=== PATIENT | female | born 1945 | race Caucasian/White ===

== ENCOUNTER 2020-02-03 08:32 | Outpatient (CLI) | payer MEDICARE, SELFPAY ==
[2020-02-03 08:59] LABS: Hematocrit 40.1 % (37.0-47.0); Mean Corpuscular HGB Conc 34.9 g/dl (32-36); Mean Corpuscular Hemoglobin 35.9 pg (26-34); Mean Corpuscular Volume 102.8 fl (80-100); Mean Platelet Volume 8.7 fl (7.4-10.4); Platelet Count Result 281 k/mm3 (150-375); Red Cell Distribution Width 14.6 % (11.5-14.5); White Blood Count 4.5 K/mm3 (4.5-10.0)
[2020-02-03 09:13] LABS: Potassium 3.6 mmol/L (3.4-5.0)
[2020-02-03 09:14] LABS: Alanine Aminotransferase 24 U/L (4-35); Albumin Level 3.7 g/dL (3.5-5.1); Alkaline Phosphatase 58 U/L (38-126); Anion Gap 9 mmol/L (8-16); Aspartate Amino Transferase 47 U/L (14-36); Bilirubin,Total 0.5 mg/dL (0.2-1.3); Blood Urea Nitrogen 14 mg/dL (7-17); Calcium 8.7 mg/dL (8.4-10.2); Carbon Dioxide 27 mmol/L (22-30); Chloride 103 mmol/L (98-107); Cholesterol 159 mg/dL (0-200); Estimated Glomerular Filt Rate > 60; Glucose 100 mg/dL (65-105); HDL Direct 82 mg/dL; Sodium 139 mmol/L (137-145); Triglycerides 184 mg/dL (<150)
[2020-02-03 09:24] LABS: LDL Cholesterol Direct 55 mg/dL
== END 2020-02-03 08:33 | disposition home or self-care (01) ==
LOC: ANHLAB 08:36
PROVIDERS: PCP Family Medicine; Visit Provider Physician Assistant Medical
DX: I10 Essential (primary) hypertension (principal); E78.2 Mixed hyperlipidemia; Z13.220 Encounter for screening for lipoid disorders
CPT/HCPCS: 36415; 80053; 80061; 84443; 85027

== ENCOUNTER → 2020-05-02 15:52 | Outpatient (CLI) | payer MEDICARE, SELFPAY ==
--- NOTE | ~2020-05-02 | MM_ITS ---
EXAMINATION: MM screening renetta BI w kong HISTORY: Screening mammogram TECHNIQUE: Craniocaudal and mediolateral oblique 3-D tomosynthesis images were obtained and synthetic 2-D images were generated. CAD analysis was submitted and interpreted. COMPARISON: 02/11/2019, 01/23/2018, 01/21/2017, 01/2016 bilateral digital screening mammogram examina tions BREAST PARENCHYMAL COMPOSITION: There are scattered areas of fibroglandular density. FINDINGS: Occasional benign calcifications. There is no evidence of suspicious mass, calcification, o r architectural distortion to suggest malignancy in either breast. There has been no suspicious inter katerina change. IMPRESSION: 1. No mammographic evidence of malignancy. 2. Recommend routine screening mammography in one year. BI-RADS Category 1: Negative Reviewed, dictated and finalized at location A. 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
== END ==
PROVIDERS: PCP Family Medicine; Visit Provider Obstetrics & Gynecology
DX: Z12.31 Encounter for screening mammogram for malignant neoplasm of breast (principal)
CPT/HCPCS: 77063; 77067

== ENCOUNTER → 2021-05-04 09:59 | Outpatient (CLI) | payer MEDICARE, SELFPAY ==
--- NOTE | ~2021-05-04 | MM_ITS ---
EXAMINATION: MM screening renetta BI w kong HISTORY: Screening mammogram TECHNIQUE: Craniocaudal and mediolateral oblique 3-D tomosynthesis images were obtained and synthetic 2-D images were generated. CAD analysis was submitted and interpreted. COMPARISON: 05/02/2020, 02/11/2019, 01/23/2018 bilateral screening mammogram examinations BREAST PARENCHYMAL COMPOSITION: There are scattered areas of fibroglandular density. FINDINGS: There is no evidence of suspicious mass, calcification, or architectural distortion to sugg est malignancy in either breast. There has been no suspicious interval change. IMPRESSION: 1. No mammographic evidence of malignancy. 2. Recommend routine screening mammography in one year. BI-RADS Category 1: Negative Reviewed, dictated and finalized at location A. GRADER
== END ==
PROVIDERS: Visit Provider Obstetrics & Gynecology
DX: Z12.31 Encounter for screening mammogram for malignant neoplasm of breast (principal)
CPT/HCPCS: 77063; 77067

== ENCOUNTER → 2022-06-28 11:22 | Outpatient (CLI) | payer MEDICARE, SELFPAY ==
--- NOTE | ~2022-06-28 | MM_ITS ---
EXAMINATION: MM screening [facility] BI w kong HISTORY: Screening mammogram TECHNIQUE: Craniocaudal and mediolateral oblique 3-D tomosynthesis images were obtained and synthetic 2-D images were generated. CAD analysis was submitted and interpreted. COMPARISON: 05/04/2021, 05/02/2020, 02/11/2019 BREAST PARENCHYMAL COMPOSITION: There are scattered areas of fibroglandular density. FINDINGS: No suspicious mass, calcification, or architectural distortion are identified in either corey ast to suggest malignancy. There has been no suspicious interval change. IMPRESSION: 1. No mammographic evidence of malignancy. 2. Recommend routine screening mammography in one year. BI-RADS Category 1: Negative Reviewed, dictated and finalized at location A. 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
== END ==
PROVIDERS: PCP Obstetrics & Gynecology; Visit Provider Obstetrics & Gynecology
DX: Z12.31 Encounter for screening mammogram for malignant neoplasm of breast (principal)
CPT/HCPCS: 77063; 77067

== ENCOUNTER 2023-02-13 10:56 | Emergency (ER) | payer MEDICARE, SELFPAY ==
--- NOTE | ~2023-02-13 | XR_ITS ---
XR ankle LT min 3V, XR foot LT min 3V 02/13/2023 11:35 Indication: Left ankle and foot pain after fall Procedure: 4 views left ankle and 4 views left foot Comparison: No prior studies for comparison. Findings: Is a transverse nondisplaced fracture proximal aspect of the fifth metatarsal. Ankle mortis e intact. There is hallux valgus. 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 Ost eopenia. There is an avulsion fracture involving the lateral margin of the cuboid with mild associate d soft tissue swelling. There is an avulsion fracture of the navicular. Impression: 1: Transverse nondisplaced fracture proximal aspect of the fifth metatarsal. 2: Avulsion fractures of the cuboid and navicular. Reviewed, dictated and finalized at location B. Impression: 1: Transverse nondisplaced fracture proximal aspect of the fifth metatarsal. 2: Avulsion fractures of the cuboid and navicular. Impression: 1: Transverse nondisplaced fracture proximal aspect of the fifth metatarsal. 2: Avulsion fractures of the cuboid and navicular.
--- NOTE | 2023-02-13 10:58 | ED.LOWEXIN ---
HPI - Extremity Injury (Lower) General Chief Complaint: Extremity Injury, Lower Stated Complaint: Left Ankle and Foot Injury Time Seen by Provider: 02/13/23 10:57 Source: patient Mode of arrival: ambulatory Limitations: no limitations History of Present Illness HPI Narrative: Patient is a 77-year-old female presents with left ankle and foot pain, swelling after fall at [employer]. Patient has still been able to ambulate with pain in at a slower pace. Reports she took an aspirin yesterday but has not taken any pain medication since. Does report bruising and swelling but denies any numbness, tingling of foot. Denies hitting head on fall. Patient denies any LOC on fall. Related Data Allergies Allergy/AdvReac Type Severity Reaction Status Date / Time Penicillins Allergy Unknown Unknown Verified 02/13/23 11:18 Sulfa (Sulfonamide Allergy Unknown Unknown Verified 02/13/23 11:18 Antibiotics) Review of Systems Review of Systems: All systems reviewed & are unremarkable except as noted in HPI and below Constitutional: Constitutional: Denies body ache(s), Denies chills, Denies fatigue, Denies fever(s), Denies headache(s), Denies malaise and Denies weakness Eyes: Eyes: Denies blurry vision, Denies irritation and Denies loss of vision ENT: Denies otalgia, Denies headache(s), Denies nasal discharge, Denies sinus pain and Denies sore throat Cardiovascular: Cardiovascular: Denies chest pain, Denies irregular heart rhythm and Denies dyspnea Respiratory: Respiratory: Denies dyspnea Gastrointestinal: Gastrointestinal: Denies abdominal pain, Denies melena, Denies hematochezia, Denies diarrhea, Denies nausea and Denies vomiting Musculoskeletal: Musculoskeletal: Denies back pain, Denies myalgias, Reports arthralgias and Reports joint swelling Integumentary/Breasts: Skin/Breast: Denies pruritus and Denies rash Neurologic: Denies headache(s), Denies loss of vision and Denies weakness Psychiatric: Psychiatric: Reports no additional psychiatric complaints Endocrine: Endocrine: Denies fatigue PMFSH Past Medical History Medical History BMI 26.0-26.9,adult BMI 28.0-28.9,adult Body mass index (BMI) 23 or greater Family History Family History Father Family history of renal failure Family history of heart disease in male family member before age 55 Hypertension Family history of malignant neoplasm of urinary bladder Mother Hypertension Family history of heart disease in male family member before age 55 Heart disease Sibling Hypertension Social History Social History Smoking status: Never smoker Second hand tobacco smoke exposure: No Alcohol intake: former Substance use: never Substance use type: does not use Lack of Transportation: No Lack of Food: Never True Current Housing: I Have Housing Concerned About Future Housing: No Difficulty Paying for Meds: No Currently Unemployed: No Difficulty w/ Childcare or Family Care: No Living arrangements: alone 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 There is no relevant family history pertinent to the presenting complaint. Exam Const: General: cooperative, healthy appearing, comfortable, no acute distress and well nourished Nutritional Appearance: well nourished Orientation/consciousness: patient oriented x3 Limitations: no limitations HENMT: Head: normal to inspection, normocephalic and atraumatic Ears: hearing grossly normal bilaterally and external ears normal Face/Nose/Sinus: Normal external nose present, normal facial exam and face symmetric Face and sinus: nor
[2023-02-13 11:22] VITALS: BP 105/79; PULSE 59; RESP 16; TEMP 36.3; O2SAT 100
== END 2023-02-13 12:45 | disposition home or self-care (01) ==
PROVIDERS: Emergency Provider Nurse Practitioner Family; PCP Family Medicine
DX: S92.355A Nondisplaced fracture of fifth metatarsal bone, left foot, initial encounter for closed fracture (principal); S92.212A Displaced fracture of cuboid bone of left foot, initial encounter for closed fracture; S92.252A Displaced fracture of navicular [scaphoid] of left foot, initial encounter for closed fracture; W19.XXXA Unspecified fall, initial encounter; M81.0 Age-related osteoporosis without current pathological fracture
CPT/HCPCS: 29515; 73610; 73630; 99214; G0463

== ENCOUNTER → 2023-04-08 14:54 | Outpatient (CLI) | payer MEDICARE, SELFPAY ==
--- NOTE | ~2023-04-08 | XR_ITS ---
EXAMINATION: XR chest 2V DATE: 04/08/2023 15:19 INDICATION: Chronic cough TECHNIQUE: PA and lateral views of the chest are obtained. COMPARISON: 11/03/2014 FINDINGS: There are airspace opacities of the right lung, most pronounced in the middle and lower lob es. No pleural effusion or pneumothorax. The cardiomediastinal silhouette is normal. There is moderat e thoracic spondylosis. Healed left-sided rib and clavicle fractures are noted. IMPRESSION: 1. Airspace opacities of the right lung, consistent with pneumonia. Consider followup radiographs or chest CT in six weeks if symptoms persist after appropriate therapy or if the patient is at high risk for malignancy. Reviewed, dictated and finalized at location B. 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 Airspace opacities of the right lung, consistent with pneumonia. Consider fo llowup radiographs or chest CT in six weeks if symptoms persist after appropria te therapy or if the patient is at high risk for malignancy.
== END ==
PROVIDERS: PCP Physician Assistant Medical; Visit Provider Physician Assistant Medical
DX: R05.3 Chronic cough (principal); R91.8 Other nonspecific abnormal finding of lung field
CPT/HCPCS: 71046

== ENCOUNTER → 2023-04-29 10:46 | Outpatient (CLI) | payer MEDICARE, SELFPAY ==
--- NOTE | ~2023-04-29 | XR_ITS ---
Clinical Indication: Pneumonia PA and lateral views of the chest: Comparison: 04/08/2023 Findings: Pneumonia the right upper lobe and probable right lung base is mildly improved from prior e xam. Left lung remains clear.. Cardiomediastinal silhouette is within normal limits. Bones and soft tissues are unremarkable. Impression: Partial resolution of right upper lobe and probable right basilar pneumonia since prior exam. Continu ed follow-up to radiographic resolution is advised. Reviewed, dictated and finalized at location M. 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 Continued follow-up to radiographic resolution is advised.
== END ==
PROVIDERS: PCP Family Medicine; Visit Provider Physician Assistant Medical
DX: J18.9 Pneumonia, unspecified organism (principal)
CPT/HCPCS: 71046

== ENCOUNTER 2025-01-18 12:28 | Emergency (ER) | payer MEDICARE, SELFPAY ==
--- NOTE | ~2025-01-18 | XR_ITS ---
EXAMINATION: XR foot RT min 3V DATE: 01/18/2025 13:24 INDICATION: Right great toe/midfoot injury 2 days ago TECHNIQUE: 4 images of the right foot were obtained COMPARISON: None. FINDINGS: Bones appear osteopenic. No fracture. No dislocation. Toes are curled which slightly limits evaluatio n. Small posterior calcaneal spur. Hallux valgus deformity. Moderate degenerative change in the first metatarsophalangeal joint with adjacent soft tissue swellin g. IMPRESSION: 1. No acute bony abnormality identified. 2. Hallux valgus deformity. 3. Moderate degenerative change in the first metatarsophalangeal joint with adjacent soft tissue swel ling. If symptoms persist or worsen, consider a short-term follow-up study or additional imaging for furthe r assessment. Reviewed, dictated and finalized at location A. IMPRESSION: 1. No acute bony abnormality identified. 2. Hallux valgus deformity. 3. Moderate degenerative change in the first metatarsophalangeal joint with adj acent soft tissue swelling. If symptoms persist or worsen, consider a short-term follow-up study or additio nal imaging for further assessment.
--- NOTE | 2025-01-18 12:30 | ED_ITS ---
HPI - Extremity Injury (Lower) General Chief Complaint: Extremity Injury, Lower Stated Complaint: R Foot Pain Time Seen by Provider: 01/18/25 12:29 Source: patient Mode of arrival: ambulatory Limitations: no limitations History of Present Illness HPI Narrative: Carolyn is an 79-year-old female patient presenting to the clinic today with complaints of right foot-great toe/midfoot pain x2 days. She reports symptoms s tarted on Saturday night. States she was going up the steps when she discovered that she was having some great toe/midfoot pain. History of osteoarthritis and multiple fractures in her feet. She denies any known injury. Related Data Allergies Allergy/AdvReac Type Severity Reaction Status Date / Time Penicillins Allergy Unknown Unknown Verified 01/18/25 12:33 Sulfa (Sulfonamide Allergy Unknown Unknown Verified 01/18/25 12:33 Antibiotics) Review of Systems Review of Systems: Pertinent positives per HPI. Patient denies any fever, chills, rash, headache, visual changes, dizziness, cough, runny nose, sore throat, shortness of breath, chest pain, palpitations, nausea, vomiting, diarrhea, constipation, abdominal pain, or any urinary issues. [facility] Past Medical History Medical History BMI 24.0-24.9, adult Fracture of metatarsal of left foot, closed Surgical History Surgical History H/O section Family History Family History Father Family history of renal failure Family history of heart disease in male family member before age 55 Hypertension Family history of malignant neoplasm of urinary bladder Acute myocardial infarction Mother Hypertension Family history of heart disease in male family member before age 55 Heart disease Sibling Hypertension Social History Social History Smoking status: Never smoker Second hand tobacco smoke exposure: No Alcohol intake: former Substance use: never Substance use type: does not use Do You Feel Safe in your Home?: Yes Lack of Transportation: No Lack of Food: Never True Current Housing: I Have Housing Concerned About Future Housing: No Difficulty Paying for Meds: No Currently Unemployed: No Education: Bachelor's Degree Difficulty w/ Childcare or Family Care: No Living arrangements: alone Occupation/Education: retired Additional occupation/education comments: [employer], [place] Gender identity (if verbalized by the patient): Female Comments At the time of my signature, I reviewed and agree with the nursing past medical, surgical, social, and family history. There is no relevant family history pertinent to the patient complaint. Exam Narrative: General: Well-developed, well nourished, in no apparent distress Head: Normocephalic, atraumatic. Cardio: Regular rate and rhythm, s1 and s2 normal, no murmur appreciated. Resp: Clear to auscultation bilaterally, no rhonchi, rales, wheezing or rubs. Musculoskeletal: No deformity, tender to palpation over the right great toe with flexion of the right great toe, grossly normal range of motion, muscle strength strong and equal, peripheral pulse strong, no edema, no cyanosis, normal gait and station Course Course Emergency Course: Portions of this record may have been created with voice recognition software. Level of Care: Express Care Visit Vital Signs Vital signs: Vital Signs Temperature 36.5 C 01/18/25 12:36 Pulse Rate 69 01/18/25 12:36 Respiratory Rate 16 01/18/25 12:36 Blood Pressure 130/112 H 01/18/25 12:36 Pulse Oximetry 98 01/18/25 12:36 Oxygen Delivery Room Air 01/18/25 12:36 Temperature 36.5 C 01/18/25 12:36 Pulse Rate 69 01/18/25 12:36 Respiratory Rate 16 01/18/25 12:36 Blood Pressure 130/112 H 01/18/25 12:36 Pulse Oximetry 98 01/18/25 12:36 Oxygen Delivery Room Air 01/18/25 12:36 Vital signs reviewed MDM - Extremity Injury (Lower) MDM Narrative Medical decision making narrative: At the time of visit patient is resting comfortably on the exam table. Patient appears to be nontoxic. complaints of right foot-great toe/midfoot pain x2 days. She reports symptoms started on Saturday night. States she was going up the steps when she discovered that she was having some great toe/midfoot pain. History of osteoarthritis and multiple fractures in her feet. She denies any known injury. She is unable to rate the pain but states that the pain is shooting when she bends her right great toe and pain is worse when going out incline or steps. X-ray of the right foot was ordered. Diagnostics: X-ray of the right foot was performed was negative for any acute fracture or malalignment. Does show osteoarthritis over the right great toe with localized swelling. Plan: I suspect patient has osteoarthritis of the right great toe. Prescription for Medrol Dosepak was sent to the pharmacy. Supportive measures were discussed with the patient and they voiced understanding discharge instructions and agrees to treatment plan. Return precautions reviewed Differential Diagnosis Differential diagnosis: Likely fracture of toe and other (foot sprain, osteoarthritis) Imaging Data Radiologist's impression: ITS Impressions Foot X-Ray 01/18/25 13:27 IMPRESSION: 1. No acute bony abnormality identified. 2. Hallux valgus deformity. 3. Moderate degenerative change in the first metatarsophalangeal joint with adjacent soft tissue swelling. If symptoms persist or worsen, consider a short-term follow-up study or additional imaging for further assessment. 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 Does show moderate degenerative change changes into the great toe with localized swelling Rest, ice, elevate, and wear jovany wrap as directed Tylenol/motrin for pain as discussed. Gradually bear weight No running or sports until healed. Follow up with your PCP if symptoms persist more than 1 week. Patient Language: Arabic Prescriptions: New methylprednisolone [Medrol (Edward)] 4 mg tablets,dose pack See Rx Instructions PO .COMPLEX Qty: 21 0RF Rx Instructions: orally per package directions No Action propranolol 120 mg capsule,extended release 24 hr See Rx Instructions .ROUTE .COMPLEX Qty: 60 5RF Dose Instruction: TAKE 2 TABLETS BY MOUTH DAILY Rx Instructions: TAKE 2 TABLETS BY MOUTH DAILY latanoprost 0.005 % drops 1 drop EACH EYE QPM Qty: 2.5 0RF spironolactone 50 mg tablet See Rx Instructions .ROUTE .COMPLEX Qty: 90 4RF Dose Instruction: TAKE ONE TABLET BY MOUTH DAILY Rx Instructions: TAKE ONE TABLET BY MOUTH DAILY primidone 50 mg tablet See Rx Instructions .ROUTE .COMPLEX Qty: 180 3RF Dose Instruction: TAKE TWO (2) TABLETS BY MOUTH 3 TIMES A DAY Rx Instructions: TAKE TWO (2) TABLETS BY MOUTH 3 TIMES A DAY escitalopram oxalate 20 mg tablet See Rx Instructions .ROUTE .COMPLEX Qty: 90 0RF Dose Instruction: TAKE ONE TABLET BY MOUTH DAILY Rx Instructions: TAKE ONE TABLET BY MOUTH DAILY lorazepam 0.5 mg tablet 0.5 mg PO QHS PRN (Reason: anxiety) Qty: 30 2RF atorvastatin 40 mg tablet See Rx Instructions .ROUTE .COMPLEX Qty: 90 2RF Dose Instruction: TAKE ONE TABLET BY MOUTH ONCE DAILY Rx Instructions: TAKE ONE TABLET BY MOUTH ONCE DAILY hydrochlorothiazide 12.5 mg tablet 12.5 mg PO DAILY Qty: 90 0RF Follow-up/Referrals: Arvind Tian MD [Primary Care Provider] - Time of Disposition: 13:36 Quality NIHSS Nursing Documentation ED NIHSS nursing documentation: reviewed/agree
[2025-01-18 12:36] VITALS: BP 130/112; PULSE 69; RESP 16; TEMP 36.5; O2SAT 98
== END 2025-01-18 13:48 | disposition home or self-care (01) ==
PROVIDERS: Emergency Provider Nurse Practitioner Family; PCP Family Medicine
DX: M19.071 Primary osteoarthritis, right ankle and foot (principal)
CPT/HCPCS: 73630; 99213; G0463